=== PATIENT | male | born 2000 | race Caucasian/White ===

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

== ENCOUNTER 2018-06-24 15:52 | Emergency (ER) | payer OTHER ==
[2018-06-24 16:01] VITALS: BP 143/86; PULSE 114; TEMP 99; BMI 19.5
--- NOTE | 2018-06-24 16:44 | PDOC ---
History of Present Illness - General Chief Complaint: Abscess Boil Stated Complaint: PAIN Time Seen by Provider: 06/24/18 16:36 - History of Present Illness Initial Comments: 06/24/18 16:41 18-year-old male fully immunized without comorbidities presents for evaluation of the painful area on his left axilla 3 days. No systemic symptoms. Past History - Past Medical History Allergies/Adverse Reactions: Allergies Allergy/AdvReac Type Severity Reaction Status Date / Time No Known Allergies Allergy Verified 06/24/18 16:01 Home Medications: Ambulatory Orders Cephalexin [Keflex] 500 mg PO QID #40 capsule 06/24/18 Ibuprofen [Motrin -] 600 mg PO TID #30 tablet 06/24/18 Sulfamethoxazole/Trimethoprim [Bactrim Ds -] 1 tab PO BID #14 tablet 06/24/18 COPD: No DVT: No - Surgical History Appendectomy: Yes (2017) - Immunization History Immunization Up to Date: Yes - Suicide/Smoking/Psychosocial Hx Smoking Status: No Smoking History: Current some day smoker Have you smoked in the past 12 months: No Number of Cigarettes Smoked Daily: 1 Information on smoking cessation initiated: No Hx Alcohol Use: No Drug/Substance Use Hx: No Substance Use Type: None Review of Systems - Review of Systems Constitutional: No: Fever Integumentary: Yes: See HPI, Erythema, Lesions *Physical Exam - Vital Signs Last Vital Signs Temp Pulse Resp BP Pulse Ox 99.0 F 114 H 18 143/86 99 06/24/18 15:59 06/24/18 15:59 06/24/18 15:59 06/24/18 15:59 06/24/18 15:59 - Physical Exam Comments: 06/24/18 16:41 There is about a 4 cm elliptical area of erythema induration and tenderness. Without fluctuance. There are no gross sensorimotor deficits. Moderate Sedation - Procedure Monitoring Vital Signs: Procedure Monitoring Vital Signs Temperature 99.0 F 06/24/18 15:59 Pulse Rate 114 H 06/24/18 15:59 Respiratory Rate 18 06/24/18 15:59 Blood Pressure 143/86 06/24/18 15:59 O2 Sat by Pulse Oximetry (%) 99 06/24/18 15:59 *DC/Admit/Observation/Transfer Diagnosis at time of Disposition: Cellulitis of axilla, left - Discharge Dispostion Disposition: HOME Condition at time of disposition: Stable Decision to Admit order: No - Prescriptions Prescriptions: Cephalexin [Keflex] 500 mg PO QID #40 capsule Ibuprofen [Motrin -] 600 mg PO TID #30 tablet Sulfamethoxazole/Trimethoprim [Bactrim Ds -] 1 tab PO BID #14 tablet - Referrals Referrals: Mark Lim MD [Staff Physician] - - Patient Instructions Additional Instructions: Please take the antibiotics as directed. Take the Motrin as directed one tablet 3 times a day with food discontinue the Motrin if it bothers her stomach. Return to the emergency room should symptoms worsen. Otherwise follow-up with general surgery in 2-3 days for further evaluation and treatment options. Warm compresses 7-10 times a day while awake as directed. - Post Discharge Activity
== END 2018-06-24 16:47 | disposition home or self-care (01) ==
LOC: JERFT 15:52
DX: L03.112 Cellulitis of left axilla (principal)
CPT/HCPCS: 99281-25

== ENCOUNTER 2018-08-22 21:17 | Emergency (ER) | payer OTHER ==
--- NOTE | 2018-08-22 21:39 | PDOC ---
Rapid Medical Evaluation Medical Evaluation: Allergies Allergy/AdvReac Type Severity Reaction Status Date / Time No Known Allergies Allergy Verified 06/24/18 16:01 I have performed a brief in-person evaluation of this patient. 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 08/22/18 21:36
[2018-08-22 21:41] VITALS: BP 113/68; PULSE 96; TEMP 98.6; BMI 33.5
--- NOTE | 2018-08-22 23:01 | PDOC ---
*Physical Exam - Vital Signs Last Vital Signs Temp Pulse Resp BP Pulse Ox 98.6 F 96 H 16 113/68 98 08/22/18 21:38 08/22/18 21:38 08/22/18 21:38 08/22/18 21:38 08/22/18 21:38 Medical Decision Making - Medical Decision Making 08/22/18 23:01 Patient seen by the advanced practice provider under my direct supervision. Ancillary testing reviewed as necessary. I agree with plan as outlined by the advanced practice provider. *DC/Admit/Observation/Transfer Diagnosis at time of Disposition: Laceration - Discharge Dispostion Disposition: HOME Condition at time of disposition: Stable - Referrals Referrals: Ina Pope MD [Primary Care Provider] - - Patient Instructions Printed Discharge Instructions: DI for Laceration Repair Additional Instructions: Rest, elevate, avoid strenuous activity or heavy lifting until sutures are removed Leave dressing on for the next 24 hours, Then may remove dressing gently and wash area with soap and water. Reapply bacitracin ointment and dressing daily for the next 5 days On day #6 keep the wound protected and cover as needed until sutures are removed allowing wound to start to dry May use Tylenol or Motrin for pain relief Suture removal in : 7-10 Days - Post Discharge Activity Forms/Work/School Notes: Back to Work
--- NOTE | 2018-08-22 23:24 | PDOC ---
History of Present Illness - General Chief Complaint: Laceration Stated Complaint: LACERATION Time Seen by Provider: 08/22/18 21:36 History Source: Patient Exam Limitations: No Limitations - History of Present Illness Initial Comments: 08/22/18 23:25 HISTORY OF PRESENT ILLNESS: 18-year-old male denies medical history presents emergency department for evaluation of laceration to his left fourth finger while at work today. 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 Patient initially washed his hands and finished his shift prior to, to the emergency department. The injury happened at approximately 2:30 this afternoon. Patient is right-hand dominant. Patient reports his last tetanus shot was approximately one year ago during his routine physical exam. No recent travel or sick contacts. PAST MEDICAL HISTORY: Denies past medical history SURGICAL HISTORY: Denies ALLERGIES: No known drug allergies REVIEW OF SYSTEMS General/Constitutional: Denies fever or chills. Denies weakness, weight change. HEENT: Denies change in vision. Denies ear pain or discharge. Denies sore throat. Cardiovascular: Denies chest pain or shortness of breath. Respiratory: Denies cough, wheezing, or hemoptysis. Gastrointestinal: Denies nausea, vomiting, diarrhea or constipation. Denies rectal bleeding. Genitourinary: Denies dysuria, frequency, or change in urination. Musculoskeletal: Denies joint or muscle swelling or pain. Denies neck or back pain. Skin and breasts:see HPI Neurologic: Denies headache, vertigo, loss of consciousness, or loss of sensation. Psychiatric: Denies depression or anxiety. Endocrine: Denies increased thirst. Denies abnormal weight change. Hematologic/Lymphatic: Denies anemia, easy bleeding, or history of blood clots. Allergic/Immunologic: Denies hives or skin allergy. Denies latex allergy. PHYSICAL EXAM General Appearance: Well-appearing, appropriately dressed. No apparent distress , no intoxication.. Musculoskeletal/Extremities: Normal inspection. FROM of all extremities, normal capillary refill. Pelvis Stable. No CVA tenderness. No tenderness to extremities, pedal edema, swelling, erythema or deformity. Integumentary: Approximate 1.5 cm linear laceration present to the dorsum of the fourth digit of the left hand. Laceration is superficial. Normal sensation distal to the injury. Capillary refill is less than 2 seconds. FAROM. Past History - Past Medical History Allergies/Adverse Reactions: Allergies Allergy/AdvReac Type Severity Reaction Status Date / Time No Known Allergies Allergy Verified 08/22/18 21:41 Home Medications: Ambulatory Orders Cephalexin [Keflex] 500 mg PO QID #40 capsule 06/24/18 Ibuprofen [Motrin -] 600 mg PO TID #30 tablet 06/24/18 Sulfamethoxazole/Trimethoprim [Bactrim Ds -] 1 tab PO BID #14 tablet 06/24/18 COPD: No DVT: No - Surgical History Appendectomy: Yes (2017) - Immunization History Immunization Up to Date: Yes - Suicide/Smoking/Psychosocial Hx Smoking Status: No Smoking History: Never smoked Have you smoked in the past 12 months: No Number of Cigarettes Smoked Daily: 1 Information on smoking cessation initiated: No Hx Alcohol Use: No Drug/Substance Use Hx: No Substance Use Type: None *Physical Exam - Vital Signs Last Vital Signs Temp Pulse Resp BP Pulse Ox 98.6 F 96 H 16 113/68 98 08/22/18 21:38 08/22/18 21:38 08/22/18 21:38 08/22/18 21:38 08/22/18 21:38 Moderate Sedation - Procedure Monitoring Vital Signs: Procedure Monitoring Vital Signs Temperature 98.6 F 08/22/18 21:38 Pulse Rate 96 H 08/22/18 21:38 Respiratory Rate 16 08/22/18 21:38 Blood Pressure 113/68 08/22/18 21:38 O2 Sat by Pulse Oximetry (%) 98 08/22/18 21:38 Procedures - Consent Consent obtained: Verbal, From Patient - Laceration/Wound Repair Left Dorsal Finger 4th digit Wound Length: to 2.5 cm Wound Explored: clean Wound's Depth, Shape: superficial Irrigated w/ Saline: Yes Betadine Prep: Yes Anesthesia: 1% Lidocaine Amount of Anesthetic (ccs): 4 Wound Debrided: minimal Wound Repaired With: Sutures Suture Size/Type: 5:0, nylon Number of Sutures: 3 Layer Closure: No Sterile Dressing Applied: Yes Splint Applied: Yes Sling Applied: No Progress: 08/22/18 23:28 pt tolerated well. Medical Decision Making - Medical Decision Making 08/22/18 23:24 A/P: 18-year-old male with laceration to left fourth digit Laceration repair-see procedure note for details Tetanus up-to-date Discharge home 08/22/18 23:27 *DC/Admit/Observation/Transfer Diagnosis at time of Disposition: Laceration - Discharge Dispostion Disposition: HOME Condition at time of disposition: Stable Decision to Admit order: No - Referrals Referrals: Ina Pope MD [Primary Care Provider] - - Patient Instructions Printed Discharge Instructions: DI for Laceration Repair Additional Instructions: Rest, elevate, avoid strenuous activity or heavy lifting until sutures are removed Leave dressing on for the next 24 hours, Then may remove dressing gently and wash area with soap and water. Reapply bacitracin ointment and dressing daily for the next 5 days On day #6 keep the wound protected and cover as needed until sutures are removed allowing wound to start to dry May use Tylenol or Motrin for pain relief Suture removal in : 7-10 Days - Post Discharge Activity Forms/Work/School Notes: Back to Work
== END 2018-08-23 00:11 | disposition home or self-care (01) ==
LOC: JER 21:17 → JERFT 21:17 → JER 08-23 00:11
PROC: 0HQGXZZ Repair Left Hand Skin, External Approach (ICD-10-PCS; principal; 2018-08-22)
PROC: 2W3KX1Z Immobilization of Left Finger using Splint (ICD-10-PCS; 2018-08-22)
DX: S61.215A Laceration without foreign body of left ring finger without damage to nail, initial encounter (principal); W31.89XA Contact with other specified machinery, initial encounter; Y93.89 Activity, other specified; Y92.69 Other specified industrial and construction area as the place of occurrence of the external cause; Y99.0 Civilian activity done for income or pay
CPT/HCPCS: 99281-25

== ENCOUNTER 2021-08-28 15:30 | Emergency (ER) | payer OTHER ==
[2021-08-28 15:41] VITALS: BP 135/78; PULSE 78; TEMP 98.9; BMI 27.8
[2021-08-28] MEDS ORDERED: AZITHROMYCIN 500 MG TABLET PO ONE (16:48)
[2021-08-28] MEDS ORDERED: AZITHROMYCIN 250 MG TABLET ONE (16:50)
[2021-08-28 17:57] LABS: SYPHILIS W/ RPR CONF NON-REACTIVE (NONREACTIVE)
[2021-08-28 18:26] LABS: HIV INTERPRETATION NEGATIVE (NEGATIVE)
== END 2021-08-28 16:50 | disposition home or self-care (01) ==
LOC: FER 15:30
DX: Z20.2 Contact with and (suspected) exposure to infections with a predominantly sexual mode of transmission (principal)
CPT/HCPCS: 36415; 86780; 87389; 87491; 87591; 99281-25

== ENCOUNTER 2022-04-13 10:44 | Emergency (ER) | payer OTHER ==
[2022-04-13 12:10] VITALS: BP 131/74; PULSE 67; RESP 18; TEMP 98.1; BMI 25.7
[2022-04-13] MEDS ORDERED: IBUPROFEN 600 MG TABLET (FP) PO ONE (12:22)
[2022-04-13] MEDS ORDERED: METHOCARBAMOL 500 MG TABLET PO ONE (13:13)
== END 2022-04-13 14:11 | disposition home or self-care (01) ==
LOC: JERFT 10:44
DX: S39.012A Strain of muscle, fascia and tendon of lower back, initial encounter (principal); V44.5XXA Car driver injured in collision with heavy transport vehicle or bus in traffic accident, initial encounter
CPT/HCPCS: 72100-TC-FY; 99283-25